=== PATIENT | female | born 2000 | race Caucasian/White ===

== ENCOUNTER → 2021-08-31 | Emergency (ER) | payer BC ==
[~2021-08-31] VITALS: Ht 170 cm; Wt 58.0 kg
[~2021-08-31] MED LIST: CEPH500T PO; CEPHALEXIN 250 MG (KEFLEX) CAP PO STA
[2021-08-31 21:47] VITALS: BP 120/74
[2021-08-31 22:35] LABS: BILIRUBIN,URINE NEGATIVE (NEGATIVE); CLARITY,URINE CLEAR; COLOR,URINE YELLOW; GLUCOSE, URINE (UA) NEGATIVE (NEGATIVE); KETONES,URINE NEGATIVE (NEGATIVE); LEUKOCYTE ESTERASE ,URINE 1+ (NEGATIVE); NITRITE,URINE NEGATIVE (NEGATIVE); PH,URINE 6.5 (5-9); PROTEIN,URINE NEGATIVE (NEGATIVE)
[2021-08-31 22:42] LABS: BACTERIA,URINE MODERATE /HPF; RBC,URINE 0-2 /HPF; SQUAMOUS EPITHELIAL CELL,UR 0-2 /HPF
--- NOTE | 2021-08-31 23:23 | ED GU-Female ---
General Chief Complaint: - Reproductive Stated Complaint: VAG ITCHING AND BURNING Nursing Triage Note: pt presents and reports having vaginal itching and discharge that is white and chunky for one week. denies trying OTC medications for treatment. reports hx of frequent yeast infections Source: patient Exam Limitations: no limitations (CHAPARRO BAILEY MD) History of Present Illness Date Seen by Provider: Aug 31, 2021 Time Seen by Provider: 21:56 Initial Comments 21-year-old female patient G2, with LMP of first week of August complaining of yeast infection. Patient states she usually gets frequent episodes of yeast infection and take Azo and cranberry juice and it resolved but this time the problem did not resolve for the last 6 days. Patient complaining of itching and whitish discharge and irritation in the labial area with touching with cloths. Patient denies nausea and vomiting, urinary symptoms, fever and chills, abdominal pain, vaginal spotting or bleeding. Patient states she is not sexually active and her last sexual activity was in May and had a negative test last month. Timing/Duration: other (6 days) (CHAPARRO BAILEY MD) Allergies and Home Medications Allergies Coded Allergies: No Known Drug Allergies (Unverified , 09/01/21) Patient Home Medication List Home Medication List Reviewed: Yes (CHAPARRO BAILEY MD) Cephalexin (Cephalexin) 500 Mg Tablet, 500 MG PO TID Prescribed by: FRANCIA FISHER on 09/01/21 0014 Review of Systems Review of Systems Constitutional: no symptoms reported EENTM: no symptoms reported Respiratory: no symptoms reported Gastrointestinal: no symptoms reported Genitourinary: see HPI : No Musculoskeletal: no symptoms reported Skin: no symptoms reported (CHAPARRO BAILEY MD) All Other Systemes Reviewed Negative Unless Noted: Yes (CHAPARRO BAILEY MD) Past Oonwzxd-Pjrwvb-Xjvduy Hx Patient Social History Tobacco Use?: No Substance use?: No Alcohol Use?: No (CHAPARRO BAILEY MD) Immunizations Up To Date Influenza Vaccine Up-to-Date: No; Not Current (CHAPARRO BAILEY MD) Past Medical History Last Menstrual Period: Aug 13, 2021 (CHAPARRO BAILEY MD) Physical Exam Vital Signs Vital Signs - First Documented 08/31/21 21:47 Temp 36.3 Pulse 85 Resp 18 B/P (MAP) 120/74 (89) Pulse Ox 98 O2 Delivery Room Air (FRANCIA CUNNINGHAM MD) Vital Signs Capillary Refill : (CHAPARRO BAILEY MD) Height, Weight, BMI Height: '" Weight: lbs. oz. kg; 20.00 BMI Method: General Appearance: no apparent distress HEENT: PERRL/EOMI Neck: non-tender Cardiovascular: regular rate, rhythm Respiratory: normal breath sounds Gastrointestinal: normal bowel sounds, soft Genital/Rectal: normal genital exam, other (Vaginal exam was performed in presence of superintendent service. Patient refused a speculum and manual exam and just asked for taking a sample with a swab.) Back: normal inspection, no CVA tenderness Extremities: normal range of motion (CHAPARRO BAILEY MD) Progress/Results/Core Measures Suspected Sepsis SIRS Temperature: Pulse: 85 Respiratory Rate: 18 Blood Pressure 120 /74 Mean: 89 (CHAPARRO BAILEY MD) Results/Orders Lab Results Laboratory Tests Test 08/31/21 22:25 08/31/21 23:09 Range/Units Urine Color YELLOW Urine Clarity CLEAR Urine pH 6.5 5-9 Urine Specific [place] <=1.005 1.016-1.022 Urine Protein NEGATIVE NEGATIVE Urine Glucose (UA) NEGATIVE NEGATIVE Urine Ketones NEGATIVE NEGATIVE Urine Nitrite NEGATIVE NEGATIVE Urine Bilirubin NEGATIVE NEGATIVE Urine Urobilinogen 0.2 < = 1.0 MG/DL Urine Leukocyte Esterase 1+ H NEGATIVE Urine RBC (Auto) 1+ H NEGATIVE Urine RBC 0-2 /HPF Urine WBC 10-25 H /HPF Urine Squamous Epithelial Cells 0-2 /HPF Urine Crystals NONE /LPF Urine Bacteria MODERATE H /HPF Urine Casts NONE /LPF Urine Mucus NEGATIVE /LPF Urine Culture Indicated YES Urine Test POSITIVE NEGATIVE Human Chorionic Gonadotropin, Quant 79 H <5 MIU/ML (FRANCIA CUNNINGHAM MD) Micro Results Microbiology 08/31/21 Wet Prep - Final, Complete (FRANCIA CUNNINGHAM MD) My Orders Orders - FRANCIA CUNNINGHAM MD Cephalexin Capsule (Keflex Capsule) (09/01/21 00:12) (FRANCIA CUNNINGHAM MD) Vital Signs/I&O 08/31/21 21:47 Temp 36.3 Pulse 85 Resp 18 B/P (MAP) 120/74 (89) Pulse Ox 98 O2 Delivery Room Air (FRANCIA CUNNINGHAM MD) Vital Signs/I&O Capillary Refill : (CHAPARRO BAILEY MD) Blood Pressure Mean: 89 Progress Note : Time: 23:25 Progress Note Evaluation of patient in ER showed 21-year-old female patient with complaining of yeast infection. Patient denied but had positive urine test. UA showed UTI. Patient requested urine test. hCG quantitative is pending. Patient care transferred to Dr. Cunningham at 2325. (CHAPARRO BAILEY MD) Progress Note : Time: 00:20 Progress Note I assumed care of this patient from Dr. Bailey. Urinary tract infection was identified by urinalysis and was treated with Keflex in the ER. Wet prep was positive for yeast and WBC. Prescription for Keflex for further treatment of UTI was provided. Urine test was positive and follow-up hCG level was 79. Patient is insistent that she has not been sexually active since having a miscarriage/ in May. She reports that her hCG levels were trended after that and returned to 0 in early June. I cannot explain her positive hCG level today, but it is important for her to follow-up and have these levels trended again. I have provided her an order to obtain another hCG level early this week. She has not established with a local provider, so I am allowing hCG lab result to be called to me so that I can help direct care. Patient was advised to use [id number] miconazole products for her yeast infection which should be safe in . With nurse superintendent service I inquired about her safety and her personal circumstances to ensure that she is not being m istreated, coerced into unwanted sexual encounters, or in any other dangerous situation. Patient asserts that she is safe and not being mistreated. See discharge instructions for further discussion. (FRANCIA CUNNINGHAM MD) Departure Impression Primary Impression: test positive Additional Impressions: Urinary tract infection Qualified Codes: N39.0 - Urinary tract infection, site not specified Vaginal candidiasis Disposition: 01 HOME, SELF-CARE Condition: Stable Departure-Patient Inst. Decision time for Depature: 23:42 (FRANCIA CUNNINGHAM MD) Referrals: NO,LOCAL PHYSICIAN (PCP/Family) Primary Care Physician Patient Instructions: Vaginal Yeast Infection, Adult ED, Urinary Tract Infections in Adults Add. Discharge Instructions: Complete your antibiotic for bladder infection as prescribed. Please follow-up with a women's health provider and/or primary care provider soon as possible. Please try to schedule an appointment for next week so that you may review urine culture results and follow-up on your hCG level. An order has been provided for you to have a repeat hCG level drawn on Saturday or Saturday of next week. This can be called to Dr. Cunningham from the emergency room to help direct your care from there unless you have established with another provider by that time. For yeast infection you may use miconazole products such as Monistat purchased o [id number]. If you are , this should be safe in . Call with questions or concerns. Return to the ER if you have worsening symptoms. All discharge instructions reviewed with patient and/or family. Voiced understanding. Scripts Cephalexin (Cephalexin) 500 Mg Tablet 500 MG PO TID, #20 TAB Prov: FRANCIA CUNNINGHAM MD 09/01/21 CHAPARRO BAILEY MD Aug 31, 2021 23:23 FRANCIA CUNNINGHAM MD Aug 31, 2021 23:45
== END ==
LOC: EDUNIT# 21:33 → ER FS 21:35
DX: B37.3 Candidiasis of vulva and vagina (principal); N39.0 Urinary tract infection, site not specified; Z28.310 Unvaccinated for COVID-19; Z32.01 Encounter for pregnancy test, result positive
CPT/HCPCS: 36415; 81000; 84702; 84703; 87077; 87088; 87186; 87210; 99283

== ENCOUNTER → 2021-09-11 | Outpatient (CLI) | payer BC ==
[~2021-09-11] MED LIST changes: -CEPHALEXIN 250 MG (KEFLEX) CAP PO STA
== END ==
LOC: LAB FS 18:09
PROVIDERS: ATTEND Family Medicine
DX: Z32.01 Encounter for pregnancy test, result positive (principal); N39.0 Urinary tract infection, site not specified
CPT/HCPCS: 36415; 84702

== ENCOUNTER 2021-09-20 19:41 | Emergency (ER) | payer BC ==
[~2021-09-20] VITALS: Ht 173.7 cm; Wt 54.0 kg
--- NOTE | 2021-09-20 19:58 | ED General ---
General Chief Complaint: Dizziness/Syncope Stated Complaint: DIZZY Nursing Triage Note: PATIENT STATES SHE HAS BEEN DIZZY ALL DAY STATES OCCURS AFTER SHE STANDS AND STARTS WALKING. History of Present Illness Date Seen by Provider: Sep 20, 2021 Time Seen by Provider: 19:55 Initial Comments 21-year-old female who is [id number] with LMP of August 03, is here with c/o 3 to 5 episodes of dizziness today when she sits up from lying position or stands up. Dizziness lasts for about 10 seconds and then she is fine. She states she is drinking enough water and has a hearty appetite. Denies fever, diarrhea, chest pain, shortness of breath, vaginal bleeding, dysuria, hematuria, headache Allergies and Home Medications Allergies Coded Allergies: No Known Drug Allergies (Unverified , 09/01/21) Patient Home Medication List Home Medication List Reviewed: Yes Cephalexin (Cephalexin) 500 Mg Tablet, 500 MG PO TID Prescribed by: FRANCIA FISHER on 09/01/21 0014 Cephalexin (Cephalexin) 500 Mg Tablet, 500 MG PO BID Prescribed by: JUDAH COLLINS MD on 09/20/215 Review of Systems Review of Systems Constitutional: dizziness EENTM: no symptoms reported Respiratory: no symptoms reported Cardiovascular: no symptoms reported Gastrointestinal: no symptoms reported Genitourinary: no symptoms reported Musculoskeletal: no symptoms reported Skin: no symptoms reported Psychiatric/Neurological: No Symptoms Reported Hematologic/Lymphatic: No Symptoms Reported Immunological/Allergic: no symptoms reported Past Dezabes-Dqoocf-Qxtrcm Hx Patient Social History Tobacco Use?: No Use of E-Cig and/or Vaping dev: Yes E-Cig or Vaping type used: Nicotine Substance use?: No Alcohol Use?: No Pt feels they are or have been: No Past Medical History Last Menstrual Period: August 06, 2021 Physical Exam Vital Signs Vital Signs - First Documented 09/20/21 19:49 Temp 37.0 Pulse 73 Resp 16 B/P (MAP) 102/64 (77) Pulse Ox 98 O2 Delivery Room Air Capillary Refill : Less Than 3 Seconds Height, Weight, BMI Height: '" Weight: lbs. oz. kg; 17.00 BMI Method: General Appearance: No Apparent Distress, WD/WN Eyes: Bilateral Eye Normal Inspection HEENT: PERRL/EOMI, TMs Normal, Normal ENT Inspection, Pharynx Normal, Moist Mucous Membranes Neck: Full Range of Motion, Normal Inspection, Non Tender, Supple Respiratory: Chest Non Tender, Lungs Clear Cardiovascular: Regular Rate, Rhythm Gastrointestinal: Non Tender, Soft Extremity: Normal Range of Motion Neurologic/Psychiatric: Alert, Oriented x3, No Motor/Sensory Deficits, Normal Mood/Affect Skin: Normal Color Progress/Results/Core Measures Suspected Sepsis SIRS Temperature: Pulse: 73 Respiratory Rate: 16 Laboratory Tests 09/20/21 20:20: White Blood Count 5.1 Blood Pressure 102 /64 Mean: 77 Laboratory Tests 09/20/21 20:20: Creatinine 0.71, Platelet Count 287, Total Bilirubin 0.2 Results/Orders Lab Results Laboratory Tests Test 09/20/21 20:20 Range/Units White Blood Count 5.1 4.3-11.0 10^3/uL Red Blood Count 4.39 3.80-5.11 10^6/uL Hemoglobin 12.8 11.5-16.0 g/dL Hematocrit 37 35-52 % Mean Corpuscular Volume 85 80-99 fL Mean Corpuscular Hemoglobin 29 25-34 pg Mean Corpuscular Hemoglobin Concent 34 32-36 g/dL Red Cell Distribution Width 12.3 10.0-14.5 % Platelet Count 287 130-400 10^3/uL Mean Platelet Volume 10.6 9.0-12.2 fL Immature Granulocyte % (Auto) 0 % Neutrophils (%) (Auto) 43 42-75 % Lymphocytes (%) (Auto) 39 12-44 % Monocytes (%) (Auto) 16 H 0-12 % Eosinophils (%) (Auto) 2 0-10 % Basophils (%) (Auto) 0 0-10 % Neutrophils # (Auto) 2.2 1.8-7.8 10^3/uL Lymphocytes # (Auto) 2.0 1.0-4.0 10^3/uL Monocytes # (Auto) 0.8 0.0-1.0 10^3/uL Eosinophils # (Auto) 0.1 0.0-0.3 10^3/uL Basophils # (Auto) 0.0 0.0-0.1 10^3/uL Immature Granulocyte # (Auto) 0.0 0.0-0.1 10^3/uL Urine Color YELLOW Urine Clarity CLEAR Urine pH 7.0 5-9 Urine Specific [place] 1.015 L 1.016-1.022 Urine Protein NEGATIVE NEGATIVE Urine Glucose (UA) NEGATIVE NEGATIVE Urine Ketones NEGATIVE NEGATIVE Urine Nitrite NEGATIVE NEGATIVE Urine Bilirubin NEGATIVE NEGATIVE Urine Urobilinogen 2.0 < = 1.0 MG/DL Urine Leukocyte Esterase 1+ H NEGATIVE Urine RBC (Auto) NEGATIVE NEGATIVE Urine RBC NONE /HPF Urine WBC 2-5 /HPF Urine Squamous Epithelial Cells 2-5 /HPF Urine Crystals NONE /LPF Urine Bacteria FEW H /HPF Urine Casts NONE /LPF Urine Mucus N /LPF Urine Culture Indicated YES Sodium Level 138 135-145 MMOL/L Potassium Level 3.7 3.6-5.0 MMOL/L Chloride Level 104 98-107 MMOL/L Carbon Dioxide Level 26 21-32 MMOL/L Anion Gap 8 5-14 MMOL/L Blood Urea Nitrogen 6 L 7-18 MG/DL Creatinine 0.71 0.60-1.30 MG/DL Estimat Glomerular Filtration Rate 124 BUN/Creatinine Ratio 8 Glucose Level 86 70-105 MG/DL Calcium Level 8.6 8.5-10.1 MG/DL Corrected Calcium 8.6 8.5-10.1 MG/DL Magnesium Level 1.9 1.6-2.4 MG/DL Total Bilirubin 0.2 0.1-1.0 MG/DL Aspartate Amino Transf (AST/SGOT) 22 5-34 U/L Alanine Aminotransferase (ALT/SGPT) 13 0-55 U/L Alkaline Phosphatase 84 40-136 U/L Total Protein 6.8 6.4-8.2 GM/DL Albumin 4.0 3.2-4.5 GM/DL Urine Opiates Screen NEGATIVE NEGATIVE Urine Oxycodone Screen NEGATIVE NEGATIVE Urine Methadone Screen NEGATIVE NEGATIVE Urine Propoxyphene Screen NEGATIVE NEGATIVE Urine Barbiturates Screen NEGATIVE NEGATIVE Ur Tricyclic Antidepressants Screen NEGATIVE NEGATIVE Urine Phencyclidine Screen NEGATIVE NEGATIVE Urine Amphetamines Screen NEGATIVE NEGATIVE Urine Methamphetamines Screen NEGATIVE NEGATIVE Urine Benzodiazepines Screen NEGATIVE NEGATIVE Urine Cocaine Screen NEGATIVE NEGATIVE Urine Cannabinoids Screen NEGATIVE NEGATIVE My Orders Orders - JUDAH COLLINS MD Orthostatic Vital Signs (Adult (09/20/21 20:07) Cbc With Automated Diff (09/20/21 20:07) Comprehensive Metabolic Panel (09/20/21 20:07) Drug Screen Stat (Urine) (09/20/21 20:07) Magnesium (09/20/21 20:07) Ua Culture If Indicated (09/20/21 20:07) Urine Culture (09/20/21 20:20) Cephalexin Capsule (Keflex Capsule) (09/20/21 22:30) Vital Signs/I&O 09/20/21 09/20/21 09/20/21 19:49 20:31 22:30 Temp 37.0 37.0 Pulse 73 83 37 80 91 Resp 16 16 B/P (MAP) 102/64 (77) 101/59 (73) 107/77 99/63 (75) 104/60 (75) Pulse Ox 98 96 O2 Delivery Room Air Room Air Capillary Refill : Less Than 3 Seconds Blood Pressure Mean: 77 Progress Note : Progress Note ORTHOSTATIC HYPOTENSION & UTI - UA is positive for LE and WBC - CBC : normal WBC - BMP normal - Advised adequate hydration and Keflex 500mg bid for 5 days - Follow up with OB-PLANT MANAGER LALI -The patient was seen in the ED, and treated appropriately to presentation at a specific point in time. Patient is informed that there is a possibility that disease and illness can evolve and change in acuity rapidly or slowly after pa ivanna is discharged from the ER. Precautionary advice given to the patient for immediate return to ER if symptoms worsen or do not resolve, and to seek emergency care sooner rather than later. Pt also advised on the importance of PCP follow up and compliance with management and follow up plan with PCP and/or specialist, as this is part of the management plan. Pt verbally expressed understanding. Departure Impression Primary Impression: Acute cystitis during in first trimester Additional Impression: Orthostatic hypotension Disposition: 01 HOME, SELF-CARE Condition: Stable Departure-Patient Inst. Referrals: NO,LOCAL PHYSICIAN (PCP/Family) Primary Care Physician Patient Instructions: Orthostatic Hypotension (DC), Urinary Tract Infections in Add. Discharge Instructions: Keflex 500mg BID for 5 days Adequate hydration advised Get up slowly from sitting or lying position Pt to follow up with [facility] OPERATOR LALI All discharge instructions reviewed with patient and/or family. Voiced understanding. Scripts Cephalexin (Cephalexin) 500 Mg Tablet 500 MG PO BID for 5 Days, #10 TAB Prov: JUDAH COLLINS MD 09/20/21 JUDAH COLLINS MD Sep 20, 2021 19:58
[2021-09-20 20:29] LABS: BASOPHILS % (AUTO) 0 % (0-10); EOSINOPHILS # (AUTO) 0.1 10^3/uL (0.0-0.3); EOSINOPHILS % (AUTO) 2 % (0-10); HEMATOCRIT 37 % (35-52); HEMOGLOBIN 12.8 g/dL (11.5-16.0); LYMPHOCYTES % (AUTO) 39 % (12-44); MEAN CORPUSCULAR HEMOGLOBIN 29 pg (25-34); MEAN CORPUSCULAR HGB CONC 34 g/dL (32-36); MEAN CORPUSCULAR VOLUME 85 fL (80-99); MEAN PLATELET VOLUME 10.6 fL (9.0-12.2); MONOCYTES # (AUTO) 0.8 10^3/uL (0.0-1.0); MONOCYTES % (AUTO) 16 % (0-12); NEUTROPHILS # (AUTO) 2.2 10^3/uL (1.8-7.8); NEUTROPHILS % (AUTO) 43 % (42-75); PLATELET COUNT 287 10^3/uL (130-400); WHITE BLOOD COUNT 5.1 10^3/uL (4.3-11.0)
[2021-09-20 20:31] VITALS: BP_SYST 101; BP_SYST 104; BP_SYST 99; BP_DIAS 59; BP_DIAS 60; BP_DIAS 63
[2021-09-20 20:32] LABS: BILIRUBIN,URINE NEGATIVE (NEGATIVE); CLARITY,URINE CLEAR; COLOR,URINE YELLOW; GLUCOSE, URINE (UA) NEGATIVE (NEGATIVE); KETONES,URINE NEGATIVE (NEGATIVE); LEUKOCYTE ESTERASE ,URINE 1+ (NEGATIVE); NITRITE,URINE NEGATIVE (NEGATIVE); PROTEIN,URINE NEGATIVE (NEGATIVE)
[2021-09-20 20:38] LABS: BACTERIA,URINE FEW /HPF
[2021-09-20 20:42] LABS: AMPHETAMINE SCREEN, URINE NEGATIVE (NEGATIVE); BARBITURATE SCREEN URINE NEGATIVE (NEGATIVE); BENZODIAZEPINES SCREEN URINE NEGATIVE (NEGATIVE); CANNABINOID SCREEN, URINE NEGATIVE (NEGATIVE); COCAINE SCREEN URINE NEGATIVE (NEGATIVE); METHADONE STAT NEGATIVE (NEGATIVE); OPIATE SCREEN URINE NEGATIVE (NEGATIVE); OXYCODONE STAT NEGATIVE (NEGATIVE); PROPOXYPHENE STAT NEGATIVE (NEGATIVE); TRICYCLIC ANTIDEPRESSANTS SCRE NEGATIVE (NEGATIVE)
[2021-09-20 20:50] LABS: CALCIUM 8.6 MG/DL (8.5-10.1); CREATININE SERUM 0.71 MG/DL (0.60-1.30); MAGNESIUM 1.9 MG/DL (1.6-2.4); POTASSIUM 3.7 MMOL/L (3.6-5.0); TOTAL PROTEIN 6.8 GM/DL (6.4-8.2)
[2021-09-20 20:51] LABS: BILIRUBIN,TOTAL 0.2 MG/DL (0.1-1.0)
[2021-09-20 22:30] VITALS: BP 101/77
[2021-09-20] MEDS ORDERED: CEPHALEXIN 250 MG (KEFLEX) CAP PO STA (22:30)
[2021-09-20] MEDS ORDERED: CEPH500T PO (22:35)
== END 2021-09-20 22:22 | disposition home or self-care (01) ==
LOC: EDUNIT# 19:41 → ER FS 19:42
DX: O26.51 Maternal hypotension syndrome, first trimester (principal); O23.11 Infections of bladder in pregnancy, first trimester; N30.00 Acute cystitis without hematuria; O99.331 Smoking (tobacco) complicating pregnancy, first trimester; F17.290 Nicotine dependence, other tobacco product, uncomplicated; Z3A.00 Weeks of gestation of pregnancy not specified
CPT/HCPCS: 36415; 80053; 80306; 81000; 83735; 85025; 87088